=== PATIENT | male | born 1995 | race Caucasian/White ===

== ENCOUNTER 2018-06-27 13:22 | Emergency (ER) | payer OTHER ==
[~2018-06-27] VITALS: Ht 175.3 cm; Wt 68.0 kg
[2018-06-27] MEDS ORDERED: ONDANSETRON HCL 4 MG/2 ML VIAL IV ONE (15:30)
[2018-06-27] MEDS ORDERED: MORPHINE SULFATE 4 MG/ML SYR/VIAL IV ONE ×2 (15:30→18:45)
[2018-06-27 18:34] VITALS: BP 97/44
[2018-06-27] MEDS ORDERED: MORPHINE SULF INJ 2 MG/ML SYRINGE 1ML ONE (18:44)
== END 2018-06-27 19:07 | disposition short-term general hospital (02) ==
LOC: EDBD 13:22 → ER 13:26 → EDBD 13:26 → ER 19:07
DX: S42.352A Displaced comminuted fracture of shaft of humerus, left arm, initial encounter for closed fracture (principal); S09.8XXA Other specified injuries of head, initial encounter; W00.2XXA Other fall from one level to another due to ice and snow, initial encounter; Y93.23 Activity, snow (alpine) (downhill) skiing, snowboarding, sledding, tobogganing and snow tubing; Y92.828 Other wilderness area as the place of occurrence of the external cause; Y99.8 Other external cause status
CPT/HCPCS: 29105; 70450; 71045; 73060; 96374; 96375; 96376; 99285; J2270; J2405